=== PATIENT | female | born 1995 | race African-American/Black ===

== ENCOUNTER 2022-10-19 18:37 | Emergency (ER) | payer OTHER, SELFPAY ==
[2022-10-19] MEDS ORDERED: Acetaminophen 500 MG TAB ONE (19:32)
[2022-10-19] MEDS ORDERED: Ketorolac Tromethamine 30 MG/ML VIAL ONE (19:32)
== END 2022-10-19 22:10 | disposition home or self-care (01) ==
LOC: ERS 18:37
DX: S46.811A Strain of other muscles, fascia and tendons at shoulder and upper arm level, right arm, initial encounter (principal); V89.2XXA Person injured in unspecified motor-vehicle accident, traffic, initial encounter
CPT/HCPCS: 99283; J1885